=== PATIENT | male | born 1950 | race Caucasian/White ===

== ENCOUNTER 2018-06-10 12:02 | Emergency (ER) | payer MEDICARE, MEDICAID ==
[2018-06-10 13:11] VITALS: BP 101/75
--- NOTE | 2018-06-10 13:40 | UC ---
Respiratory Complaint HPI - HPI Summary HPI Summary: Pt is accompanied by custodial personnel. street sweeper states taht pt has wound on abdomen that is red and "streaking". Additionally, caregiver reports taht pt' s cough and URI like symptoms are worsening. Pt has hx of COPD and uses supplemental O2. Baseline O2 according to staff member is 97%. - History of Current Complaint Chief Complaint: UCSkin Stated Complaint: SKIN CONCERN/COUGH Time Seen by Provider: 06/10/18 13:32 Hx Obtained From: Family/Lab Director Onset/Duration: Gradual Onset, Lasting Days, Still Present Timing: Constant Severity Initially: Mild Severity Currently: Mild Pain Intensity: 0 Character: Cough: Productive Aggravating Factors: Deep Breaths Alleviating Factors: Nothing Associated Signs And Symptoms: Positive: URI, Nasal Congestion - Risk Factors Pulmonary Embolism Risk Factors: Negative Cardiac Risk Factors: Negative Pseudomonas Risk Factors: Chronic Lung Disease Tuberculosis Risk Factors: Communal Living - Allergies/Home Medications Allergies/Adverse Reactions: Allergies Allergy/AdvReac Type Severity Reaction Status Date / Time amoxicillin Allergy Intermediate Rash Verified 06/10/18 13:13 Sulfa (Sulfonamide Allergy Intermediate Rash Verified 06/10/18 13:13 Antibiotics) seasonal Allergy Unknown Uncoded 05/25/15 08:30 Reaction Details PMH/Surg Hx/FS Hx/Imm Hx Previously Healthy: No Respiratory History: COPD - Surgical History Surgical History: Yes Surgery Procedure, Year, and Place: pt states 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 B/L SHOULDER SX--~2004 - Family History Known Family History: Positive: Cardiac Disease - Social History Occupation: Disabled Lives: Detention Alcohol Use: Weekly Alcohol Amount: 1 can beer Substance Use Type: None Smoking Status (MU): Former Smoker Have You Smoked in the Last Year: No When Did the Patient Quit Smoking/Using Tobacco: june 2012 Household Exposure Type: Cigarettes Review of Systems Constitutional: Negative Skin: Other - erythema Eyes: Negative ENT: Sinus Congestion Respiratory: Cough Cardiovascular: Negative Gastrointestinal: Negative Genitourinary: Negative Motor: Negative Neurovascular: Negative Musculoskeletal: Negative Neurological: Negative Psychological: Negative Is Patient Immunocompromised?: No All Other Systems Reviewed And Are Negative: Yes Physical Exam Triage Information Reviewed: Yes Appearance: Ill-Appearing Vital Signs: Initial Vital Signs Temp 98.9 F 06/10/18 13:03 Pulse 88 06/10/18 13:03 Resp 18 06/10/18 13:03 BP 101/75 06/10/18 13:03 Pulse Ox 95 06/10/18 13:03 Eyes: Positive: Conjunctiva Clear ENT: Positive: Nasal congestion Dental: Positive: Gross Decay/Caries @ Neck: Positive: Supple Respiratory: Positive: Decreased breath sounds Cardiovascular Exam: Normal Abdomen Description: Positive: Other: - dried scab on abdomen, umbilical hernia non tender, erytheam ~ 3 cm in diameter. Musculoskeletal Exam: Normal Neurological Exam: Normal Psychological Exam: Normal - at baseline norm per caregiver Skin Exam: Other - 2 dried scabs abdomen, each ~ 1cm in diameter. erythema, ~ 3 cm in diameter UC Diagnostic Evaluation - Laboratory O2 Sat by Pulse Oximetry: 95 Respiratory Course/Dx - Differential Dx/Diagnosis Differential Diagnosis/HQI/PQRI: Bronchitis, Exacerbation Of COPD Provider Diagnoses: infected wound. bronchitis. exacerbation of copd Discharge - Sign-Out/Discharge Documenting (check all that apply): Patient Departure - Discharge Plan Condition: Stable Disposition: HOME Prescriptions: Albuterol 2.5MG/3ML (0.083%)* [Ventolin 2.5 MG/3 ML NEB.THEODORA*] 2.5 mg INH Q4H 7 Days #1 box DOXYcycline CAP(*) [DOXYcycline 100MG CAP(*)] 100 mg PO Q12H #20 cap Patient Education Materials: Wound Infection (ED), Acute Bronchitis (ED), Acute Wound Care (ED) Referrals: Balbina Francis NP [Primary Care Provider] - - Billing Disposition and Condition Condition: STABLE Disposition: Home
== END 2018-06-10 13:51 | disposition home or self-care (01) ==
LOC: UCCORT 12:02
DX: S31.109A Unspecified open wound of abdominal wall, unspecified quadrant without penetration into peritoneal cavity, initial encounter (principal); L08.9 Local infection of the skin and subcutaneous tissue, unspecified; X58.XXXA Exposure to other specified factors, initial encounter; Y93.9 Activity, unspecified; Y92.9 Unspecified place or not applicable; J44.1 Chronic obstructive pulmonary disease with (acute) exacerbation; J40 Bronchitis, not specified as acute or chronic; Z88.2 Allergy status to sulfonamides; Z87.891 Personal history of nicotine dependence; Z88.0 Allergy status to penicillin
CPT/HCPCS: 99212; G0463

== ENCOUNTER 2018-06-14 14:37 | Emergency (ER) | payer MEDICARE, MEDICAID ==
--- OUTSIDE RECORDS SUMMARY | 2018-06-14 15:07 | XMS REPORT ---
:1950 External Reference #:[id number] Author Organization [facility] [employer] Address [address] [place] [address] Phone [phone] Care Team Providers Name Role Phone Latia Eisenberg DO Care Team Information Proj Mgr Unavailable Stefany Eisenberg MD Primary Care Physician Unavailable Payers Type Date Identification Numbers Payment Provider Subscriber Medicare Primary Policy Number: [id number] Medicare Negrito Francis PayID: [id number] [address] [facility] [place] [address] Medicaid Policy Number: [id number] Medicaid Negrito Francis Group Name: 2 1 [address] PayID: [id number] [place] [address] Problems Description No Information Social History Type Date Description Comments Marital Status Single Cigarette Use Current Cigarette Smoker 1 Pack Daily ETOH Use Never used alcohol Allergies, Adverse Reactions, Alerts Date Description Reaction Status Severity Comments 04/19/2012 sulfa active 04/19/2012 Amoxicillin active 04/19/2012 Seasonal active Medications Medication Date Status Form Strength Qnty SIG Indications Ordering Provider Oxygen 05/27 Active 3 L John, Lizeth Fulton Fluticasone 01/13 Active Suspension 50mcg/Act 32gm 2 sprays John, both donte Fulton M.D. every day Acetaminophen Active Tablets 325mg prn Unknown /[address] 81mg qday Unknown /0000 Cardizem CD Active Caps ER 180mg daily Unknown /0000 24HR Diabetic Tussin Active Liquid 100mg/5ML prn Unknown /0000 Januvia Active Tablets 50mg Unknown /0000 Laclotion Active Lotion 12% daily Unknown / Liquid Antacid Active Suspension 225-200mg prn Unknown /0000 /5ML Loperamide HCL Active Capsules 2mg prn Unknown / Metoprolol Active Tablets ER 25mg Unknown Succinate ER /0000 24HR Proair HFA Active Aerosol 108(90Bas 1unit 2puffs Unknown /0000 e) mcg/ac s every 4 hrs as needed Thiamine HCL Active Tablets 100mg bid Triple Antibiotic Active Ointment 0.35-1000 prn 0-0.1 Vitamin D Active Capsules [id number] 6caps 1 by Unknown / mouth every week Zocor Active Tablets 20mg daily Zyrtec Allergy Active Tablets 10mg 90tab 1 po qd Unknown s Multivitamin/Conference Services Coordinator Active Capsules 27-1mg daily Unknown als Cetirizine HCL Active Tablets 10mg 30tab 1 by Unknown / s mouth every day Sertraline HCL Active Tablets 100mg Simvastatin Active Tablets 40mg Unknown Spiriva Handihaler Active Capsules 18mcg 90cap 1 by Unknown / s mouth every day Hydrochlorothiazid Active Capsules 12.5mg 1 by Unknown e /0000 mouth every day Zoloft Hx Tablets 100mg daily - 04/24 Vital Signs Date Vital Result Comment 05/25/2018 Weight 160.00 lb Height 67 inches 5'7" BMI (Body Mass Index) 25.1 kg/m2 BP Systolic 116 mmHg BP Diastolic 81 mmHg Heart Rate 64 /min O2 % BldC Oximetry 97 % Body Temperature 97.9 F Pain Level 0 05/27/2017 Weight 168.00 lb Height 67 inches 5'7" BMI (Body Mass Index) 26.3 kg/m2 BP Systolic 116 mmHg BP Diastolic 72 mmHg Heart Rate 74 /min O2 % BldC Oximetry 99 % Body Temperature 97.6 F 01/13/2017 Weight 159.00 lb Height 67 inches 5'7" BMI (Body Mass Index) 24.9 kg/m2 BP Systolic 122 mmHg BP Diastolic 76 mmHg Heart Rate 66 /min O2 % BldC Oximetry 97 % Body Temperature 97.4 F 05/21/2016 Weight 159.00 lb Height 67 inches 5'7" BMI (Body Mass Index) 24.9 kg/m2 BP Systolic 118 mmHg BP Diastolic 72 mmHg Heart Rate 73 /min O2 % BldC Oximetry 94 % on 2L via NC Body Temperature 98.2 F 04/24/2014 Weight 155.38 lb Height 67.25 inches 5'7.25" BMI (Body Mass Index) 24.2 kg/m2 BP Systolic 122 mmHg BP Diastolic 80 mmHg Heart Rate 89 /min O2 % BldC Oximetry 89 % Body Temperature 97.9 F 04/19/2012 Weight 127.00 lb Height 67.25 inches 5'7.25" BMI (Body Mass Index) 19.7 kg/m2 BP Systolic 126 mmHg BP Diastolic 80 mmHg Body Temperature 96.0 F 03/26/2010 Weight 148.25 lb Height 69 inches 5'9" BMI (Body Mass Index) 21.9 kg/m2 Heart Rate 81 /min O2 % BldC Oximetry 91 % Results Description No Information Procedures Date CPT Code Description Status 05/27/2017 19028 Tympanometry Completed 05/27/2017 82961 Tympanometry Completed 05/27/2017 76544 Audiometry, Comprehensive Completed 05/27/2017 58836 Audiometry, Comprehensive Completed 05/27/2017 43955 Remove Impacted Cerumen Completed 05/21/2016 55031 Tympanometry Completed 05/21/2016 13924 Tympanometry Completed 05/21/2016 05812 Audiometry, Comprehensive Completed 05/21/2016 20438 Audiometry, Comprehensive Completed 05/13/2015 06479 Audiometry, Comprehensive Completed 05/13/2015 53497 Audiometry, Comprehensive Completed 05/13/2015 69956 Tympanometry Completed 05/13/2015 03492 Tympanometry Completed 04/24/2014 27931 Audiometry, Comprehensive Completed 04/24/2014 98342 Audiometry, Comprehensive Completed 03/26/2010 39634 Audiometry, Comprehensive Completed 03/26/2010 10692 Tympanometry And Reflex Thres Completed 04/05/2008 04480 Acoustic Reflex Testing Completed 04/05/2008 52707 Tympanometry Completed 04/05/2008 73452 Audiometry, Comprehensive Completed Encounters Type Date Location Provider CPT E/M Dx Office Visit 05/27/2017 11:15a Main Office Donaldo Lopez M.D. 49571 H90.3 J31.0 H61.23 Office Visit 01/13/2017 11:15a Main Office Donaldo Lopez M.D. 99720 H90.3 J31.0 Office Visit 05/21/2016 5:00p Main Office Donaldo Lopez M.D. 14858 H90.3 J31.0 Office Visit 04/24/2014 2:45p Main Office Donaldo Lopez M.D. 51834 389.10 380.4 472.0 Office Visit 04/19/2012 10:30a [place] [address] 389.10 Office Visit 03/26/2010 9:45a [place] [address] 389.10 Plan of Care No Information Available
[2018-06-14 15:14] VITALS: BP 112/79
--- NOTE | 2018-06-14 16:01 | UC ---
Skin Complaint HPI - HPI Summary HPI Summary: The patient is a 68-year-old male diabetic from a senior living that was seen here on 06/10/2018 for evaluation of a respiratory issue and an infection on his abdominal wall. States that his breathing is much improved and is back to baseline. He states that his abdominal infection is improving as well. He states that there was an area of ulceration surrounded by redness. He thinks her redness has decreased. He ulcerated area is now scabbed over. There has been no reported fever or chills. - History of Current Complaint Chief Complaint: UCSkin Time Seen by Provider: 06/14/18 15:44 Stated Complaint: RECHECK WOUND Hx Obtained From: Patient Onset/Duration: Gradual Onset, Lasting Days Timing: Constant Onset Severity: Moderate Current Severity: Mild Pain Intensity: 0 Pain Scale Used: 0-10 Numeric Character: Redness Aggravating Factor(s): Nothing Alleviating Factor(s): Other - doxy - Allergy/Home Medications Allergies/Adverse Reactions: Allergies Allergy/AdvReac Type Severity Reaction Status Date / Time amoxicillin Allergy Intermediate Rash Verified 06/14/18 15:15 Sulfa (Sulfonamide Allergy Intermediate Rash Verified 06/14/18 15:15 Antibiotics) seasonal Allergy Unknown Uncoded 06/14/18 15:15 Reaction Details Review of Systems Constitutional: Negative Skin: Negative Eyes: Negative ENT: Negative Respiratory: Negative Cardiovascular: Negative Gastrointestinal: Negative Genitourinary: Negative Motor: Negative Neurovascular: Negative Musculoskeletal: Negative Neurological: Negative Psychological: Negative Is Patient Immunocompromised?: No All Other Systems Reviewed And Are Negative: Yes PMH/Surg Hx/FS Hx/Imm Hx Previously Healthy: Yes - Mild MR Respiratory History: COPD, Asthma - Surgical History Surgical History: Yes Surgery Procedure, Year, and Place: pt states 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 B/L SHOULDER SX--~2004 - Family History Known Family History: Positive: Cardiac Disease - Social History Alcohol Use: Weekly Alcohol Amount: 1 can beer Substance Use Type: None Smoking Status (MU): Former Smoker Have You Smoked in the Last Year: No When Did the Patient Quit Smoking/Using Tobacco: june 2012 Household Exposure Type: Cigarettes Physical Exam Triage Information Reviewed: Yes Appearance: Well-Appearing, No Pain Distress, Well-Nourished Vital Signs: Initial Vital Signs Temp 97.9 F 06/14/18 15:10 Pulse 74 06/14/18 15:10 Resp 16 06/14/18 15:10 BP 112/79 06/14/18 15:10 Pulse Ox 100 06/14/18 15:10 Vital Signs Reviewed: Yes ENT: Positive: Hearing grossly normal. Negative: Nasal congestion, Nasal drainage, Trismus, Muffled voice, Hoarse voice, Uvula midline Neck: Positive: Supple, Nontender, No Lymphadenopathy Respiratory: Positive: Lungs clear, Normal breath sounds, No respiratory distress, No accessory muscle use Cardiovascular: Positive: RRR, No Murmur Musculoskeletal: Positive: ROM Intact, No Edema Neurological: Positive: Alert Psychological Exam: Normal Skin Exam: Other - 6x 10 cm area of redness with central scab Course/Dx - Diagnoses Provider Diagnoses: recheck bronchitis. recheck cellulitis Discharge - Sign-Out/Discharge Documenting (check all that apply): Patient Departure - Discharge Plan Condition: Stable Disposition: HOME Patient Education Materials: Cellulitis (ED) Referrals: Balbina Francis NP [Primary Care Provider] - 1 Week Additional Instructions: continue doxy for a full 10 days recheck for new or worsening symptoms - Billing Disposition and Condition Condition: STABLE Disposition: Home
== END 2018-06-14 16:03 | disposition home or self-care (01) ==
LOC: UCCORT 14:37
DX: Z51.89 Encounter for other specified aftercare (principal); J40 Bronchitis, not specified as acute or chronic; L03.311 Cellulitis of abdominal wall; Z88.0 Allergy status to penicillin; Z88.2 Allergy status to sulfonamides; Z87.891 Personal history of nicotine dependence; F70 Mild intellectual disabilities
CPT/HCPCS: 99211; G0463

== ENCOUNTER 2018-06-30 12:34 | Emergency (ER) | payer MEDICARE, MEDICAID ==
[2018-06-30 13:02] VITALS: BP 112/73
--- NOTE | 2018-06-30 13:15 | UC ---
HPI Wound/Suture Re-check - HPI Summary HPI Summary: Pt is accompanied by senior living caregiver. Pt has been to for c/o wound on , 06/14 and today. Pt was given doxycycline 100 mg PO q12h X 10 days beginning on 06/10 and with noted imporvment of wound. The pt and caregiver deny fever, chills, drainage or worsening of tendeness, drainage or erythema around wound. child caregiver noted increased redness and now blisters at wound site beginning two days ago. Two days ago, it was decided to apply antibiotic ointment and dressing to wound, now presnets wiht concern of worsening redness and blisters surrounding wound. - History Of Current Complaint Chief Complaint: UCSkin Stated Complaint: SKIN COMPLAINT Time Seen by Provider: 06/30/18 13:01 Hx Obtained From: Patient, Family/Association Executive Onset/Duration: Gradual Onset, Lasting Weeks, Still Present Severity: Mild Pain Intensity: 0 - Allergies/Home Medications Allergies/Adverse Reactions: Allergies Allergy/AdvReac Type Severity Reaction Status Date / Time amoxicillin Allergy Intermediate Rash Verified 06/30/18 12:56 Sulfa (Sulfonamide Allergy Intermediate Rash Verified 06/30/18 12:56 Antibiotics) seasonal Allergy Unknown Uncoded 06/30/18 12:56 Reaction Details Home Medications: Home Medications Cholecalciferol (Vitamin D3) [Vitamin D3] 50,000 unit PO DAILY 06/30/18 [ History Confirmed 06/30/18] Hydrochlorothiazide TAB* [Hydrodiuril TAB*] 25 mg PO DAILY 06/30/18 [History Confirmed 06/30/18] Metoprolol Succinate [Toprol Xl] 100 mg PO DAILY 06/30/18 [History Confirmed ] PMH/Surg Hx/FS Hx/Imm Hx Previously Healthy: Yes - Surgical History Surgical History: Yes Surgery Procedure, Year, and Place: pt states 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 B/L SHOULDER SX--~2004 - Family History Known Family History: Positive: Cardiac Disease - Social History Alcohol Use: Weekly Alcohol Amount: 1 can beer Substance Use Type: None Smoking Status (MU): Former Smoker Have You Smoked in the Last Year: No When Did the Patient Quit Smoking/Using Tobacco: june 2012 Household Exposure Type: Cigarettes Review of Systems Constitutional: Negative Skin: Other - healing wound, abdomen Eyes: Negative ENT: Negative Respiratory: Negative Cardiovascular: Negative Gastrointestinal: Negative Genitourinary: Negative Motor: Negative Neurovascular: Negative Musculoskeletal: Negative Neurological: Negative Psychological: Negative Is Patient Immunocompromised?: No All Other Systems Reviewed And Are Negative: Yes Physical Exam Triage Information Reviewed: Yes Appearance: Well-Appearing Vital Signs: Initial Vital Signs Temp 99.5 F 06/30/18 12:57 Pulse 71 06/30/18 12:57 Resp 18 06/30/18 12:57 BP 112/73 06/30/18 12:57 Pulse Ox 97 06/30/18 12:57 Vital Signs Reviewed: Yes Eye Exam: Normal ENT: Positive: Hearing grossly normal Neck exam: Normal Respiratory: Positive: No respiratory distress Abdomen Description: Positive: Other: - healing wound Musculoskeletal Exam: Normal Neurological Exam: Normal Psychological Exam: Normal Skin Exam: Other - erythematous irregular shaped area on abdomen, with 2-3 blisters intact, 2 irregualr shaped wounds with purulent center, non draining, mild tenderness. non tender umbilical hernia Course/Dx - Differential Dx - Laceration/Wound Differential Diagnoses: Cellulitis, Healing Wound Provider Diagnoses: healing wound. superficial cellulitis Discharge - Sign-Out/Discharge Documenting (check all that apply): Patient Departure All imaging exams completed and their final reports reviewed: No Studies - Discharge Plan Condition: Stable Disposition: HOME Prescriptions: DOXYcycline CAP(*) [DOXYcycline 100MG CAP(*)] 100 mg PO Q12H #14 cap Patient Education Materials: Wound Infection (DC), Acute Wound Care (ED) Referrals: Balbina Francis NP [Primary Care Provider] - If Needed Additional Instructions: Please follow up with your PCP or return to as needed. Please do not apply antibiotic ointment to wound. Please cleanse wound with solution of warm water and epsom salt, please read packaging for concentration of solution, at least two times per day. Keep wound clean. Apply dressing to wound if needed and make sure skin does not crack and dry out.You may apply think layer of vaseline if wound begins to dry and crack. - Billing Disposition and Condition Condition: STABLE Disposition: Home
== END 2018-06-30 13:26 | disposition home or self-care (01) ==
LOC: UCCORT 12:34
DX: S31.109D Unspecified open wound of abdominal wall, unspecified quadrant without penetration into peritoneal cavity, subsequent encounter (principal); L03.311 Cellulitis of abdominal wall; X58.XXXD Exposure to other specified factors, subsequent encounter; Z88.0 Allergy status to penicillin; Z51.89 Encounter for other specified aftercare; Z87.891 Personal history of nicotine dependence; Z88.1 Allergy status to other antibiotic agents; Y92.9 Unspecified place or not applicable
CPT/HCPCS: 99212; G0463

== ENCOUNTER 2018-09-28 16:36 | Emergency (ER) | payer MEDICARE, MEDICAID ==
[2018-09-28 16:54] VITALS: BP 113/77
--- NOTE | 2018-09-28 16:57 | UC ---
General HPI - HPI Summary HPI Summary: PT C/O PAIN BY L EAR AT PRIOR SITE OF ABSCESS SINCE LAST PM. STAFF THINKS IT LOOKED SWOLLEN. CONCERN FOR RECURRENT ABSCESS/INFECTION. NO FEVER. NO HX MRSA. LAST TX DOXYCYCLINE FOR SIMILAR S/S'S WITH GOOD RESULT. - History of Current Complaint Stated Complaint: PAIN BEHIND LEFT EAR /STATUS POST ABCESS Time Seen by Provider: 09/28/18 16:47 Hx Obtained From: Patient, Family/Patient Case Manager Onset/Duration: Gradual Onset Timing: Constant Associated Signs & Symptoms: Negative: Fever - Allergy/Home Medications Allergies/Adverse Reactions: Allergies Allergy/AdvReac Type Severity Reaction Status Date / Time amoxicillin Allergy Intermediate Rash Verified 09/28/18 16:52 Sulfa (Sulfonamide Allergy Intermediate Rash Verified 09/28/18 16:52 Antibiotics) seasonal Allergy Unknown Uncoded 09/28/18 16:52 Reaction Details Home Medications: Home Medications Albuterol 2.5MG/3ML (0.083%)* [Ventolin 2.5 MG/3 ML NEB.THEODORA*] 2.5 mg INH Q6H PRN 09/28/18 [History Confirmed 09/28/18] Albuterol inh POWDER (NF) [Proair Respiclick] 2 puff INH Q4H PRN 09/28/18 [ History Confirmed 09/28/18] Artificial Tears* 15 ML BTL [Polyvinyl Alcohol 1.4% OPTH*] 1 drop BOTH EYES Q2H PRN 09/28/18 [History Confirmed 09/28/18] Aspirin 81 mg CHEW TAB* [Aspirin Low Dose TAB*] 81 mg PO DAILY 09/28/18 [ History Confirmed 09/28/18] Budesonide/Formote 160/4.5(NF) [Symbicort 160/4.5 (NF)] 2 puff INH BID 09/28/18 [History Confirmed 09/28/18] Carbamide Peroxide 6.5% OTIC* [DEBROX 6.5% Otic*] 3 drop LEFT EAR WEEKLY [History Confirmed 09/28/18] Cetirizine* [ZyrTEC 10 MG TAB*] 10 mg PO DAILY 09/28/18 [History Confirmed 09/28] Cholecalciferol (Vitamin D3) [Natural Vitamin D-3] 50,000 unit PO WEEKLY [History Confirmed 09/28/18] Hydrochlorothiazide TAB* [Hydrodiuril TAB*] 25 mg PO DAILY 09/28/18 [History Confirmed 09/28/18] Levothyroxine TAB* [Synthroid TAB*] 100 mcg PO DAILY 09/28/18 [History Confirmed 09/28/18] Metoprolol Succinate XL TAB* [Toprol XL TAB*] 100 mg PO DAILY 09/28/18 [History Confirmed 09/28/18] Montelukast Sodium TAB* [Singulair TAB*] 10 mg PO DAILY 09/28/18 [History Confirmed 09/28/18] Polyethylene Glycol 3350* [Miralax*] 17 gm PO DAILY 09/28/18 [History Confirmed 09/28/18] Sertraline* [Zoloft*] 100 mg PO DAILY 09/28/18 [History Confirmed 09/28/18] Simvastatin TAB(NF) [Zocor(NF)] 20 mg PO 1700 09/28/18 [History Confirmed ] Thiamine TAB* [Vitamin B-1 TAB*] 100 mg PO DAILY 09/28/18 [History Confirmed ] Tiotropium CAP.INH* [Spiriva CAP.INH*] 1 cap.inh INH DAILY 09/28/18 [History Confirmed 09/28/18] guaiFENesin [Mucinex] 600 mg PO BID 09/28/18 [History Confirmed 09/28/18] PMH/Surg Hx/FS Hx/Imm Hx - Additional Past Medical History Additional PMH: cognitive limitation Endocrine History: Diabetes, Dyslipidemia Cardiovascular History: Hypertension Respiratory History: COPD Psychological History: Depression - Surgical History Surgical History: Yes Surgery Procedure, Year, and Place: pt states 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 B/L SHOULDER SX--~2004 - Family History Known Family History: Positive: Cardiac Disease - Social History Occupation: Disabled Lives: [place] Alcohol Use: Weekly Alcohol Amount: 1 can beer Substance Use Type: None Smoking Status (MU): Former Smoker Have You Smoked in the Last Year: No When Did the Patient Quit Smoking/Using Tobacco: june 2012 Household Exposure Type: Cigarettes Review of Systems All Other Systems Reviewed And Are Negative: Yes Constitutional: Positive: Negative Skin: Positive: Negative Eyes: Positive: Negative ENT: Positive: Negative Respiratory: Positive: Negative Cardiovascular: Positive: Negative Gastrointestinal: Positive: Negative Genitourinary: Positive: Negative Motor: Positive: Negative Neurovascular: Positive: Negative Musculoskeletal: Positive: Negative Neurological: Positive: Negative Psychological: Positive: Negative Is Patient Immunocompromised?: No Physical Exam Triage Information Reviewed: Yes Appearance: Well-Appearing Vital Signs Reviewed: Yes Eyes: Positive: Conjunctiva Clear ENT: Positive: Pharynx normal, TMs normal, Other - JUST BEHIND AND INFERIOR TO THE L EAR, PT HAS A SCAR FROM PRIOR ABSCESS. THE AREA IS SLIGHTLY PINK AND TENER TO PALPATION. IT NIS NOT FLUCTUANT. THERE IS NO AURICULAR ADENOAPTHY. IT APPEARS TO BE AN AREA WHERE THE NASAL CANNULA RUBS. THE CANNUAL APPEARS GREASY.. Negative: Nasal congestion Neck: Positive: Supple, Nontender, No Lymphadenopathy Respiratory: Positive: Lungs clear, Normal breath sounds Cardiovascular: Positive: RRR, No Murmur Abdomen Description: Positive: Nontender, No Organomegaly, Soft Bowel Sounds: Positive: Present Musculoskeletal: Positive: ROM Intact Neurological: Positive: Alert Psychological: Positive: Age Appropriate Behavior - PER HIS BASELINE Skin Exam: Normal Course/Dx - Course Course Of Treatment: NO ABSCESS BUT CONCERNING FOR RECURRENT SUPERFICIAL SKIN INFECTION. WILL TX WITH DOXYCYCLINE, SUGGEST NASAL CANNULA EAR CUSHION AND CLAEANING THE CANNULA. - Differential Dx - Multi-Symptom Provider Diagnoses: SUPERFICIAL SKIN INFECTION BY L EAR Discharge - Sign-Out/Discharge Documenting (check all that apply): Patient Departure All imaging exams completed and their final reports reviewed: No Studies - Discharge Plan Condition: Stable Disposition: HOME Prescriptions: DOXYcycline CAP(*) [DOXYcycline 100MG CAP(*)] 100 mg PO BID 7 Days #14 cap Patient Education Materials: Cellulitis (ED) Referrals: Balbina Francis NP [Primary Care Provider] - 5 Days Additional Instructions: DIAGNOSIS: EARLY SUPERFICIAL SKIN INFECTION BY LEFT EAR. SUGGEST CLEANING PATIENT NASAL CANNULA DAILY AND USING A NASAL CANNULA EAR CUSHION - Billing Disposition and Condition Condition: STABLE Disposition: Home
== END 2018-09-28 17:18 | disposition home or self-care (01) ==
LOC: UCCORT 16:36
DX: L08.9 Local infection of the skin and subcutaneous tissue, unspecified (principal); E11.9 Type 2 diabetes mellitus without complications; J44.9 Chronic obstructive pulmonary disease, unspecified; I10 Essential (primary) hypertension; F32.9 Major depressive disorder, single episode, unspecified; E78.5 Hyperlipidemia, unspecified; Z88.0 Allergy status to penicillin; Z88.2 Allergy status to sulfonamides; Z91.09 Other allergy status, other than to drugs and biological substances; Z79.899 Other long term (current) drug therapy; Z79.82 Long term (current) use of aspirin; Z87.891 Personal history of nicotine dependence
CPT/HCPCS: 99212; G0463